=== PATIENT | male | born 1950 | race Caucasian/White ===

== ENCOUNTER 2020-10-18 14:37 | Outpatient (CLI) | payer MEDICARE ==
--- NOTE | 2020-10-18 15:58 | MRI ---
MRI Upper Ext Jt Lt WO Con History: Shoulder pain Comparison: Shoulder radiograph August 25, 2020 Findings: Biceps tendon: Extra articular biceps tendon is normal. Mild intra-articular tendinosis. Labrum: Superior labral fraying along with posterior superior free edge tear. Mild posterior intrasub stance degeneration. Rotator cuff: Mild subscapularis tendinosis. The supraspinatus tendon is felt to be fully torn from t he footprint with strands of scar/granulation tissue attempting to bridge the gap. The fibers are felt to be torn to the mid humeral head. Mild fraying and 20-30% articular surface tear anterior 1 cm fibers infraspinatus tendon. Bones: Type III acromion with narrowed subacromial space. Advanced degenerative disease acromioclavic ular joint. Normal glenoid version. Cartilage: Maintained. Normal for age. Soft tissues: Normal volume joint fluid. Axillary pouch is normal. Small subacromial/subdeltoid bursa effusion. Impression: 1. 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 3 2. 30-40% articular surface tear anterior 1 cm fibers infraspinatus tendon with small myotendinous cy sts. 3. No significant muscle atrophy. 4. Type III acromion narrowing the subacromial space. 5. Free edge tear posterior superior labrum.
== END 2020-10-18 14:38 | disposition home or self-care (01) ==
LOC: TBSIIMAG 14:37
PROVIDERS: ATTEND Orthopaedic Surgery
DX: M19.012 Primary osteoarthritis, left shoulder (principal); M24.112 Other articular cartilage disorders, left shoulder; S46.812A Strain of other muscles, fascia and tendons at shoulder and upper arm level, left arm, initial encounter; S43.432A Superior glenoid labrum lesion of left shoulder, initial encounter

== ENCOUNTER 2020-11-11 06:55 | Outpatient (CLI) | payer MEDICARE ==
[2020-11-11 12:31] LABS: #Eosinphils 0.1 10x3/uL (0.0-0.5); #Monocytes 0.5 10x3/uL (0.0-1.1); #Neutrophils 4.9 10x3/uL (1.5-8.4); %Basophils 0.3 % (0.0-2.0); %Lymphocytes 21.4 % (18.0-47.0); %Monocytes 7.2 % (0.0-10.0); Hemoglobin 17.8 g/dL (14.0-18.0); Mean Corpuscular HGB CONC 34.2 G/DL (32.0-36.0); Mean Corpuscular Hemoglobin 32.5 PG (27.0-33.0); Mean Corpuscular Volume 94.9 fl (80.0-100.0); Mean Platelet Volume 9.5 fl (7.4-10.4); Platelet Count 240 10x3/uL (130-400); RBC Distribution Width 12.3 % (11.5-14.5); Red Blood Cell (RBC) Count 5.48 10x6/uL (4.40-5.80); White Blood Cell (WBC) Count 7.1 10x3/uL (4.5-11.0)
[2020-11-11 12:44] LABS: Prothrombin Time 10.6 sec (9.5-12.1)
[2020-11-11 12:48] LABS: Anion Gap 17 mmol/L (10-20); BUN (Urea Nitrogen) 24 mg/dL (8.4-25.7); Calc. Creatinine Clearance 0 mL/min (70-130); Calcium 9.6 mg/dL (7.8-10.44); Carbon Dioxide 27 mmol/L (23-31); Chloride 100 mmol/L (98-107); Glucose 81 mg/dL (80-115); Potassium 3.9 mmol/L (3.5-5.1); Sodium 140 mmol/L (136-145)
[2020-11-11 17:02] LABS: SARS-CoV-2 MS2 Positive; SARS-CoV-2 N Gene Negative; SARS-CoV-2 S Gene Negative; SARS-CoV-2 by NAA Not Detected (NotDetected); SARS-CoV-2 orf1ab Negative
== END 2020-11-11 06:56 | disposition home or self-care (01) ==
LOC: LABBT 06:55
PROVIDERS: ATTEND Orthopaedic Surgery
DX: Z01.818 Encounter for other preprocedural examination (principal); Z20.822 Contact with and (suspected) exposure to COVID-19; M75.122 Complete rotator cuff tear or rupture of left shoulder, not specified as traumatic; M75.52 Bursitis of left shoulder
CPT/HCPCS: 80048; 85025; 85610; 93005; U0003; 87635; 93010

== ENCOUNTER 2020-11-16 05:39 | Day surgery (SDC) | payer MEDICARE ==
[2020-11-12 13:00] VITALS: BMI 30.5
[2020-11-16] MEDS ORDERED: Lidocaine 2% Jelly 5 ML TUBE ONE (05:52)
[2020-11-16] MEDS ORDERED: Fentanyl 100 MCG/2 ML VIAL ONE ×2 (05:52→06:29)
[2020-11-16] MEDS ORDERED: Midazolam HCl 2 mg/2 ml Vial ONE (06:29)
[2020-11-16] MEDS ORDERED: Sodium Chloride 0.9% 10 ML ONE (06:37)
[2020-11-16] MEDS ORDERED: Bupivacaine 0.25% HCL 30 ML VIAL ONE (06:50)
[2020-11-16] MEDS ORDERED: EPINEPHrine 1 MG/ML AMP ONE (06:50)
[2020-11-16] MEDS ORDERED: Lidocaine 1% (PF) 30 ML VIAL ONE (06:50)
[2020-11-16] MEDS ORDERED: Phenylephrine 10 MG/ML VIAL ONE (07:11)
[2020-11-16] MEDS ORDERED: Bupivacaine PF 0.5% 30 ML VIAL ONE (07:21)
[2020-11-16] MEDS ORDERED: Promethazine HCl 25 MG/ML VIAL IM PRN (07:30)
[2020-11-16] MEDS ORDERED: Zolpidem Tartrate 5 MG TAB PO PRN (07:30)
[2020-11-16] MEDS ORDERED: traMADol HCl 50 MG TAB PO PRN ×2 (07:30)
[2020-11-16] MEDS ORDERED: HYDROcodone/Acetaminophen 5/325 mg Tablet PO PRN ×2 (07:30)
[2020-11-16] MEDS ORDERED: Ropivacaine 0.2% 550 ML 550 ML NERVE BLCK SCH (07:30)
[2020-11-16] MEDS ORDERED: Ondansetron PF 4 MG/2 ML Vial IVP PRN (07:30)
[2020-11-16] MEDS ORDERED: HYDROcodone/Acetaminophen 10/325 mg Tablet PO PRN ×2 (07:30)
[2020-11-16] MEDS ORDERED: Ketorolac Tromethamine 30 MG/ML VIAL IVP PRN (07:30)
[2020-11-16] MEDS ORDERED: PHENYLEPHRINE-NS 100 MCG/ML 10 ML SYRINGE ONE (11:14)
[2020-11-16] MEDS ORDERED: Dexamethasone 20 MG/5 ML VIAL ONE (11:14)
[2020-11-16] MEDS ORDERED: Ropivacaine 0.5% HCl/PF (150 MG/30 ML VIAL) ONE (11:14)
[2020-11-16] MEDS ORDERED: Glycopyrrolate 0.2 MG/ML 5 ML SYRINGE ONE (11:14)
[2020-11-16] MEDS ORDERED: Rocuronium Bromide 10 MG/ML (10ML VIAL) ONE ×2 (11:14)
[2020-11-16] MEDS ORDERED: Ondansetron PF 4 MG/2 ML Vial ONE (11:14)
[2020-11-16] MEDS ORDERED: Ropivacaine 0.2% HCl/PF (40 MG/20 ML VIAL) ONE (11:14)
[2020-11-16] MEDS ORDERED: PROPOFOL 200 MG/20 ML VIAL ONE (11:14)
--- NOTE | 2020-11-16 13:58 | OP ---
DATE OF PROCEDURE: 11/16/2020 PREOPERATIVE DIAGNOSES: 1. Left high-grade full-thickness rotator cuff tear, supraspinatus, with partial thickness infraspinatus. 2. Biceps tendinopathy. POSTOPERATIVE DIAGNOSES: 1. Left full-thickness supraspinatus tear. 2. High-grade infraspinatus tear. 3. Biceps tendinopathy. PROCEDURES PERFORMED: 1. Left rotator cuff repair. 2. Biceps tenodesis, arthroscopic. COLLECTION OFFICER: None. ANESTHESIOLOGIST: Sharron Quinn MD. ANESTHESIA: The patient received general intubation with interscalene block. ESTIMATED BLOOD LOSS: Less than 40 mL. TOURNIQUET TIME: None. IMPLANTS: A 5.5 corkscrew, a 4.75 SwiveLock x2 with a FiberTape and an 8 x 19.5 SwiveLock Bio-Tenodesis Screw. COMPLICATIONS: None. HISTORY OF PRESENT ILLNESS: Mr. Ferguson is a 70-year-old male presents with left shoulder pain. Had MRI with evidence of full-thickness supraspinatus tear with some infraspinatus tearing, some biceps tendinopathy, and AC joint arthritis. I discussed with him the risks and benefits of left rotator cuff repair with possible biceps tenodesis. I discussed with him the risks and benefits to include pain, scar, bleeding, infection, damage to vital structures, decreased range of motion and strength, Marc deformity, continued pain despite surgical intervention, failure of procedure, damage to vital structures, loss of life or limb. The patient understood the risks and benefits and elected to proceed. DESCRIPTION OF PROCEDURE: Time-out was performed designating the patient's left upper extremity as the operative site based on site, consents, and marking. After time-out, the patient's left upper extremity was prepped and draped in sterile fashion. Placed a posterior working portal intra-articularly and anterior working portal within the joint through needlelocalization. I visualized the glenoid humerus, which looked good throughout its course. The biceps was torn in its base and had frayed edge that was inflamed and caused some synovitis superiorly. Therefore, I performed a tenotomy, intra-articularly cannot find a full-thickness defect. There was some undersurface tearing with the leading edge of supraspinatus, which I cleaned up. I saw the subscap intact. There were no loose bodies. I then moved and cauterized some of the synovitic inflammation and moved subacromially. I came around anteriorly, found where there was a soft spot and fell into the footprint, which I cleaned up and made for my repair. I placed a 5.5 corkscrew. I placed a lateral working portal, debrided all the bursa, and placed the cannula in both lateral and anteriorly. I then placed a punch and placed a 5.5 corkscrew into my footprint that I had debrided the bleeding bone, sewed down the 2 [id number] stitches and used as a lateral row. Looking at my cuff, I noticed a small portion more posterior to the infraspinatus that still was not complete full thickness, but had a high-grade component. I used a FiberTape and passed it as a luggage handle stitch from two ends through and pulled it down laterally to help to compress it down with a 4.75 SwiveLock, took a picture, pleased with that, I tenotomized the biceps and moved anteriorly intra-articularly and moved anteriorly and cleaned up the footprint and tenodesed my biceps into place, drilling a drill hole for a 5. I passed a suture through, passed through the eyelets of the patient's anchor, passed that into the bone, sewed it down, had good stability, oversewed and cut the knot, pulled out the center suture for the anchor. I then took pictures, washed, closed with 2-0 nylon. The patient will begin elbow, wrist, hand motion. I will see him back in 2 weeks. The patient is followed up in 2 weeks will be sent out at discharge with p.o. hydrocodone. Job ID: [id number] [facility]
== END 2020-11-16 11:50 | disposition home or self-care (01) ==
LOC: SDC 05:39
PROVIDERS: ATTEND Orthopaedic Surgery
PROC: 0LQ24ZZ Repair Left Shoulder Tendon, Percutaneous Endoscopic Approach (ICD-10-PCS; principal; 2020-11-16)
PROC: 0LS44ZZ Reposition Left Upper Arm Tendon, Percutaneous Endoscopic Approach (ICD-10-PCS; 2020-11-16)
DX: S46.012A Strain of muscle(s) and tendon(s) of the rotator cuff of left shoulder, initial encounter (principal); M75.22 Bicipital tendinitis, left shoulder; M75.52 Bursitis of left shoulder; Z79.899 Other long term (current) drug therapy; X50.9XXA Other and unspecified overexertion or strenuous movements or postures, initial encounter; Y93.53 Activity, golf; G89.18 Other acute postprocedural pain
CPT/HCPCS: 29827; 29828; 64416; 97139; A4306; C1713 ×3; J0171; J0690; J1100; J2001; J2250; J2370; J2405; J2704; J2795; J3010; S0020

== ENCOUNTER 2021-04-15 08:57 | Outpatient (CLI) | payer MEDICARE | END 2021-04-15 08:58 | disposition home or self-care (01) | LOC: TBSIIMAG 08:57 | PROVIDERS: ATTEND Orthopaedic Surgery | DX: M25.511 Pain in right shoulder (principal); M19.011 Primary osteoarthritis, right shoulder ==

== ENCOUNTER 2021-09-05 08:48 | Outpatient (CLI) | payer MEDICARE ==
[2021-09-05 10:06] LABS: #Eosinphils 0.3 10x3/uL (0.0-0.5); #Monocytes 0.9 10x3/uL (0.0-1.1); #Neutrophils 4.5 10x3/uL (1.5-8.4); %Basophils 0.4 % (0.0-2.0); %Eosinophils 4.5 % (0.0-6.0); %Lymphocytes 19.6 % (18.0-47.0); %Monocytes 12.2 % (0.0-10.0); %Neutrophils 62.9 % (40.0-75.0); Hemoglobin 16.8 g/dL (13.5-17.5); Mean Corpuscular HGB CONC 33.8 g/dL (32.0-36.0); Mean Corpuscular Volume 94.7 fl (81.2-95.1); Mean Platelet Volume 8.8 fl (7.4-10.4); Platelet Count 235 10x3/uL (150-450); RBC Distribution Width 12.6 % (11.5-14.5); Red Blood Cell (RBC) Count 5.25 10x6/uL (4.32-5.72); White Blood Cell (WBC) Count 7.2 10x3/uL (3.5-10.5)
[2021-09-05 10:40] LABS: Anion Gap 12 mmol/L (10-20); BUN (Urea Nitrogen) 20 mg/dL (8.4-25.7); Calc. Creatinine Clearance 0 mL/min (70-130); Calcium 9.4 mg/dL (7.8-10.44); Carbon Dioxide 29 mmol/L (23-31); Chloride 102 mmol/L (98-107); Glucose 81 mg/dL (83-110); Potassium 4.2 mmol/L (3.5-5.1); Sodium 139 mmol/L (136-145)
[2021-09-05 17:47] LABS: SARS-CoV-2 PCR by NAA Not Detected (NotDetected)
== END 2021-09-05 08:49 | disposition home or self-care (01) ==
LOC: LABBT 08:48
PROVIDERS: ATTEND Orthopaedic Surgery
DX: Z01.812 Encounter for preprocedural laboratory examination (principal); S46.011A Strain of muscle(s) and tendon(s) of the rotator cuff of right shoulder, initial encounter; Z20.822 Contact with and (suspected) exposure to COVID-19
CPT/HCPCS: 80048; 85025; U0003; U0005; 93005; 93010

== ENCOUNTER 2021-09-08 06:49 | Day surgery (SDC) | payer MEDICARE ==
[2021-09-07 12:51] VITALS: BMI 31.1
[2021-09-08] MEDS ORDERED: ceFAZolin 2 GM/DEX 5% 100 ML BAG ONE (07:58)
[2021-09-08] MEDS ORDERED: Midazolam HCl 2 mg/2 ml Vial ONE (08:24)
[2021-09-08] MEDS ORDERED: Fentanyl 100 MCG/2 ML VIAL ONE ×2 (08:24→09:12)
[2021-09-08] MEDS ORDERED: Ropivacaine 2% HCl/PF (20 MG/10 ML VIAL) ONE (09:25)
[2021-09-08] MEDS ORDERED: PROPOFOL 200 MG/20 ML VIAL ONE (09:25)
[2021-09-08] MEDS ORDERED: Rocuronium Bromide 10 MG/ML (10ML VIAL) ONE (09:25)
[2021-09-08] MEDS ORDERED: Glycopyrrolate 0.2 MG/ML 5 ML SYRINGE ONE (09:25)
[2021-09-08] MEDS ORDERED: Lidocaine 1% PF 5 ML VIAL ONE (09:25)
[2021-09-08] MEDS ORDERED: Ropivacaine 0.5% HCl/PF (150 MG/30 ML VIAL) ONE (09:25)
[2021-09-08] MEDS ORDERED: Ondansetron PF 4 MG/2 ML Vial ONE (09:25)
[2021-09-08] MEDS ORDERED: Ropivacaine 0.2% 550 ML 550 ML NERVE BLCK SCH (09:30)
[2021-09-08] MEDS ORDERED: Ketorolac Tromethamine 30 MG/ML VIAL IVP PRN (09:30)
[2021-09-08] MEDS ORDERED: Ondansetron PF 4 MG/2 ML Vial IVP PRN (09:30)
[2021-09-08] MEDS ORDERED: Zolpidem Tartrate 5 MG TAB PO PRN (09:30)
[2021-09-08] MEDS ORDERED: HYDROcodone/Acetaminophen 5/325 mg Tablet PO PRN ×2 (09:30)
[2021-09-08] MEDS ORDERED: Promethazine HCl 25 MG/ML VIAL IM PRN (09:30)
[2021-09-08] MEDS ORDERED: traMADol HCl 50 MG TAB PO PRN ×2 (09:30)
[2021-09-08] MEDS ORDERED: Lidocaine 1% w/Epinephrine 1:100K 20 ML VIAL ONE (09:36)
[2021-09-08] MEDS ORDERED: hydrALAZINE 20 MG/ML VIAL ONE (12:35)
== END 2021-09-08 14:20 | disposition home or self-care (01) ==
LOC: SDC 06:49
PROVIDERS: ATTEND Orthopaedic Surgery
PROC: 0LM14ZZ Reattachment of Right Shoulder Tendon, Percutaneous Endoscopic Approach (ICD-10-PCS; principal; 2021-09-08)
PROC: 0LS30ZZ Reposition Right Upper Arm Tendon, Open Approach (ICD-10-PCS; 2021-09-08)
PROC: 3E0T3BZ Introduction of Anesthetic Agent into Peripheral Nerves and Plexi, Percutaneous Approach (ICD-10-PCS; 2021-09-08)
DX: M75.121 Complete rotator cuff tear or rupture of right shoulder, not specified as traumatic (principal); S43.431A Superior glenoid labrum lesion of right shoulder, initial encounter; M24.811 Other specific joint derangements of right shoulder, not elsewhere classified; G47.30 Sleep apnea, unspecified; Z79.899 Other long term (current) drug therapy; X58.XXXA Exposure to other specified factors, initial encounter
CPT/HCPCS: 23430; 29827; 64416; 97139 ×2; A4306; C1713; J0360; J2250; J2405; J2704; J2795; J3010

== ENCOUNTER 2022-02-10 07:41 | Outpatient (CLI) | payer MEDICARE | END 2022-02-10 07:42 | disposition home or self-care (01) | LOC: TBSIIMAG 07:41 | PROVIDERS: ATTEND Orthopaedic Surgery | DX: M75.111 Incomplete rotator cuff tear or rupture of right shoulder, not specified as traumatic (principal); M62.511 Muscle wasting and atrophy, not elsewhere classified, right shoulder; M75.81 Other shoulder lesions, right shoulder; Z98.890 Other specified postprocedural states ==

== ENCOUNTER 2022-05-31 00:02 | Inpatient (IN) | payer MEDICARE ==
[2022-05-29 11:43] VITALS: BMI 32.5
[2022-05-31] MEDS ORDERED: Tranexamic Acid 1,000 MG/10 ML VIAL ONE (06:14)
[2022-05-31] MEDS ORDERED: Vancomycin (BATCH) 1.5 GRAM/300 ML BAG ONE (06:14)
[2022-05-31] MEDS ORDERED: Sodium Chloride 0.9% 100 ML ONE ×3 (06:14→10:33)
[2022-05-31] MEDS ORDERED: Lidocaine 1% (PF) 30 ML VIAL ONE (06:31)
[2022-05-31] MEDS ORDERED: Midazolam HCl 2 mg/2 ml Vial ONE (06:31)
[2022-05-31] MEDS ORDERED: Fentanyl 100 MCG/2 ML VIAL ONE ×2 (06:31→10:16)
[2022-05-31] MEDS ORDERED: PROPOFOL 200 MG/20 ML VIAL ONE (06:44)
[2022-05-31] MEDS ORDERED: Ketorolac Tromethamine 30 MG/ML VIAL ONE (06:44)
[2022-05-31] MEDS ORDERED: Bupivacaine HCl 0.5%/Epinephrine 1:200,000/PF 30 ml Vial ONE (06:44)
[2022-05-31] MEDS ORDERED: Dexamethasone 20 MG/5 ML VIAL ONE (06:44)
[2022-05-31] MEDS ORDERED: Rocuronium Bromide 10 MG/ML (10ML VIAL) ONE (06:44)
[2022-05-31] MEDS ORDERED: Ondansetron PF 4 MG/2 ML Vial ONE (06:44)
[2022-05-31] MEDS ORDERED: Lidocaine 1% PF 5 ML VIAL ONE (06:44)
[2022-05-31] MEDS ORDERED: CEFAZOLIN 2 GM VIAL ONE ×2 (06:52→10:32)
[2022-05-31] MEDS ORDERED: fentaNYL Citrate/PF 100 MCG/2 ML SYRINGE ONE (07:02)
[2022-05-31] MEDS ORDERED: Phenylephrine 10 MG/ML VIAL ONE (07:02)
[2022-05-31] MEDS ORDERED: SUGAMMADEX SODIUM 200 MG/2 ML VIAL ONE (09:07)
[2022-05-31] MEDS ORDERED: diphenhydrAMINE 50 MG CAP PO PRN (09:42)
[2022-05-31] MEDS ORDERED: Ondansetron ODT 4 MG TAB PO PRN ×2 (09:42→10:20)
[2022-05-31] MEDS ORDERED: Ondansetron PF 4 MG/2 ML Vial IVP PRN ×2 (09:42→10:15)
[2022-05-31] MEDS ORDERED: Methocarbamol 1 GM/10 ML VIAL SLOW IVP PRN (09:42)
[2022-05-31] MEDS ORDERED: Milk Of Magnesia 30 ML UDCUP PO PRN (09:42)
[2022-05-31] MEDS ORDERED: Zolpidem Tartrate 5 MG TAB PO PRN ×2 (09:42→10:15)
[2022-05-31] MEDS ORDERED: Methocarbamol 500 MG TAB PO PRN (09:42)
[2022-05-31] MEDS ORDERED: Bisacodyl 10 MG SUPP PR PRN (09:42)
[2022-05-31] MEDS ORDERED: Acetaminophen 325 MG TAB PO PRN (09:42)
[2022-05-31] MEDS ORDERED: ceFAZolin 2 GM/Dextrose 50 ML 2 GM in Premix Bag 1 BAG IVPB SCH (09:42)
[2022-05-31] MEDS ORDERED: Famotidine 20 MG TAB PO SCH (10:15)
[2022-05-31] MEDS ORDERED: traMADol HCl 50 MG TAB PO PRN ×2 (10:15)
[2022-05-31] MEDS ORDERED: HYDROcodone/Acetaminophen 5/325 mg Tablet PO PRN (10:15)
[2022-05-31] MEDS ORDERED: Promethazine HCl 25 MG/ML VIAL IM PRN (10:15)
[2022-05-31] MEDS ORDERED: Ropivacaine 0.2% 550 ML 550 ML NERVE BLCK SCH (10:15)
[2022-05-31] MEDS ORDERED: Fentanyl 100 MCG/2 ML VIAL SLOW IVP PRN (10:18)
[2022-05-31] MEDS: Dextrose 5 %-0.45 % NaCl 1,000 ML IV SCH (11:20)
[2022-05-31] MEDS ORDERED: CEFAZOLIN 2 GM in Sodium Chloride 0.9% 100 ML IVPB SCH ×2 (14:00→19:00)
[2022-05-31] MEDS ORDERED: Vancomycin HCl 1.5 GM in Sodium Chloride 0.9% 250 ML 300 ML IVPB SCH (18:00)
[2022-05-31] MEDS ORDERED: Vancomycin 1.5 GRAM/300 ML BAG 1.5 GM in Premix Bag 1 BAG IVPB SCH (19:30)
[2022-05-31] MEDS: Famotidine 20 MG TAB PO SCH (21:10)
[2022-05-31] MEDS: HYDROcodone/Acetaminophen 5/325 mg Tablet PO PRN (22:05)
[2022-06-01] MEDS: Ketorolac Tromethamine 30 MG/ML VIAL IVP PRN ×2 (00:12→08:56)
[2022-06-01] MEDS: Dextrose 5 %-0.45 % NaCl 1,000 ML IV SCH (01:55)
[2022-06-01 07:53] VITALS: BP 135/71; TEMP 97.8
[2022-06-01] MEDS: HYDROcodone/Acetaminophen 5/325 mg Tablet PO PRN (08:46)
[2022-06-01] MEDS: Famotidine 20 MG TAB PO SCH (08:48)
[2022-06-01] MEDS ORDERED: Finasteride 5 MG TAB PO SCH (09:00)
[2022-06-01] MEDS ORDERED: Hydrochlorothiazide 25 MG TAB PO SCH (09:00)
[2022-06-01] MEDS ORDERED: Tamsulosin HCl 0.4 MG CAP PO SCH (09:00)
[2022-06-01] MEDS ORDERED: Losartan 25 MG TAB PO SCH (12:00)
== END 2022-06-01 10:50 | disposition home or self-care (01) | DRG 483 ==
LOC: SURG A 05:35 → EDSTATUS 12:48 → SURG A 12:49
PROVIDERS: ADMIT Orthopaedic Surgery; ATTEND Orthopaedic Surgery
PROC: 0RRJ0JZ Replacement of Right Shoulder Joint with Synthetic Substitute, Open Approach (ICD-10-PCS; principal; 2022-05-31)
DX: M75.121 Complete rotator cuff tear or rupture of right shoulder, not specified as traumatic (principal); N40.0 Benign prostatic hyperplasia without lower urinary tract symptoms; Z96.653 Presence of artificial knee joint, bilateral; I10 Essential (primary) hypertension; Z79.899 Other long term (current) drug therapy
CPT/HCPCS: A4306; C1713; C1776; J0690; J1100; J1885; J2001; J2250; J2370; J2405; J2704; J2795; J3010; J3370; J3490; J7042

== ENCOUNTER 2024-11-18 09:12 | Outpatient (CLI) | payer MEDICARE | END 2024-11-18 09:13 | disposition home or self-care (01) | LOC: SCSMRI 09:12 | PROVIDERS: ATTEND Orthopaedic Surgery | DX: M70.62 Trochanteric bursitis, left hip (principal); S73.192A Other sprain of left hip, initial encounter; S76.012A Strain of muscle, fascia and tendon of left hip, initial encounter; R60.0 Localized edema ==